=== PATIENT | female | born 1940 | race Caucasian/White ===

== ENCOUNTER 2018-09-06 15:27 | Emergency (ER) | payer MEDICARE, OTHER ==
[~2018-09-06] VITALS: Ht 162.6 cm; Wt 40.8 kg
[~2018-09-06 15:27] MED LIST: AMLO5TAB9 PO
--- NOTE | 2018-09-06 15:50 | NUR ---
R FLANK PAIN SINCE THURSDAY. STATES PAIN IS LIKE PRESSURE AND 11/13. HAD PREVIOUS NEPHRECTOMY OF LEFT KIDNEY. DENIES N/V. PROVIDED BLANKET FOR COMFORT. FAMILY AT BEDSIDE. READY FOR EVAL.
--- NOTE | 2018-09-06 15:50 | NUR ---
Ander tai in ED - 09/06/18 at 1635 by NUVIA R FLANK PAIN SINCE THURSDAY. STATES PAIN IS LIKE PRESSURE
--- NOTE | 2018-09-06 16:03 | NUR ---
URINE SENT TO STAT LAB
--- NOTE | 2018-09-06 16:11 | NUR ---
ELECTRICAL EQUIPMENT ASSEMBLER AT BEDSIDE
[2018-09-06 16:23] LABS: BASOPHILS % (AUTO) 0.5 % (0.0-2.0); EOSINOPHILS % (AUTO) 0.8 % (0.0-6.0); HEMATOCRIT 35 % (33-45); HEMOGLOBIN 12.1 g/dL (11.5-14.8); LYMPHOCYTES # (AUTO) 1.7 /CMM (0.8-4.8); MEAN CORPUSCULAR HGB CONC 35 g/dl (31.0-36.0); MEAN CORPUSCULAR VOLUME 94 fL (82-100); MONOCYTES # (AUTO) 0.8 /CMM (0.1-1.30); MONOCYTES % (AUTO) 9.2 % (2.0-12.0); NEUTROPHILS # (AUTO) 5.9 /CMM (1.8-8.9); NEUTROPHILS % (AUTO) 69.5 % (43.0-81.0); PLATELET COUNT (AUTO) 285 /CMM (150-450); RED BLOOD CELL COUNT(AUTO) 3.72 MIL/uL (4.0-5.2); WHITE BLOOD COUNT (AUTO) 8.5 K/uL (4.3-11.0)
[2018-09-06 16:24] LABS: APPEARANCE,URINE Turbid (CLEAR); BILIRUBIN,URINE Negative (NEGATIVE); BLOOD, URINE Large Ery/uL (NEGATIVE); COLOR,URINE Brown (YELLOW); KETONES,URINE Negative (NEGATIVE); LEUKOCYTE ESTERASE ,URINE Large (NEGATIVE); NITRITE, URINE Negative (NEGATIVE); PH,URINE 6.5 (5.0-8.0); PROTEIN,URINE >=300 mg/dl (NEGATIVE); UGLUCOSE Negative (NEGATIVE); UROBILINOGEN,URINE 0.2 EU/dL (0.2)
--- NOTE | 2018-09-06 16:24 | NUR ---
IV ACCESS OBTAINED, IVF INFUSING. PROVIDED EXTRA BLANKET FOR COMFORT. ULTRASOUND COMPLETED
[2018-09-06 16:30] LABS: CALCIUM, SERUM 8.6 mg/dL (8.5-10.1); CARBON DIOXIDE 26 mmol/L (21-32); CHLORIDE 95 mmol/L (98-107); CREATININE 2.2 mg/dL (0.6-1.3); GLUCOSE 115 mg/dL (74-106); POTASSIUM 4.9 mmol/L (3.5-5.1); SODIUM SERUM 129 mmol/L (136-145); UREA NITROGEN, BLOOD 38 mg/dL (7-18)
[2018-09-06] MEDS ORDERED: IV NS 0.9% 1,000 ML BAG IV ONE ×2 (16:30→18:00)
--- NOTE | 2018-09-06 16:30 | NUR ---
PT TAKEN TO RADIOLOGY VIA BRIANDA
--- NOTE | 2018-09-06 16:35 | NUR ---
Note abida in EDM - 09/06/18 at 1641 by NUVIA R FLANK PAIN SINCE THURSDAY. STATES PAIN IS LIKE PRESSURE AND 11/13. HAD PREVIOUS NEPHRECTOMY OF LEFT KIDNEY. DENIES N/V. PROVIDED BLANKET FOR COMFORT. FAMILY AT BEDSIDE. REAYD FOR EVAL.
[2018-09-06 16:36] LABS: ALANINE AMINOTRANSFERASE 17 U/L (12-78); ALBUMIN 3.1 g/dL (3.4-5.0); ALKALINE PHOSPHATASE 51 U/L (46-116); ASPARTATE AMINOTRANSFERASE 18 U/L (15-37); BILIRUBIN,DIRECT 0.1 mg/dL (0.0-0.2); BILIRUBIN,TOTAL 0.4 mg/dL (0.2-1.0); LIPASE 377 U/L (73-393); TOTAL PROTEIN, SERUM 7.3 g/dL (6.4-8.2)
[2018-09-06 16:42] LABS: BACTERIA,URINE 3+ /HPF (None Seen); RBC,URINE TOO NUMEROUS TO COUN /HPF (0-2); SQUAMOUS EPITHELIAL CELL,UR Few /HPF (None Seen); WBC,URINE TOO NUMEROUS TO COUN /HPF (0-3)
--- NOTE | 2018-09-06 16:42 | NUR ---
PT BACK FROM CT. SABINE WELL. DR GONZALEZ AT BEDSIDE
[2018-09-06] MEDS ORDERED: ATOR10TA PO (16:56)
--- NOTE | 2018-09-06 17:20 | NUR ---
CALLED DEHYDRATION PLANT OPERATOR UROLOGIST , TRANSFERRED CALL TO .
[2018-09-06] MEDS ORDERED: CEFTRIAXONE 1 G in IV D5W 50 ML IV ONE (17:30)
[2018-09-06] MEDS ORDERED: CEFTRIAXONE 1GM BAG (ER ONLY) 50 ML IV ONE (17:39)
--- NOTE | 2018-09-06 17:39 | NUR ---
CALLED DR.HOWARD WITT, , LEFT MESSAGE ON VOICEMAIL.
--- NOTE | 2018-09-06 18:13 | NUR ---
SECOND LITER NS INFUSING. PT SITTING COMFORTABLY IN BED. VSS. WILL CONT TO MONITOR.
--- NOTE | 2018-09-06 19:02 | NUR ---
SPOKE WITH PRINT OPERATOR CATRINA TO PROVIDE CLINICAL DATA. STATES SHE WILL HAVE HER MD CALL OUR ERMD. MOST LIKELY MEDR BED AT [facility]
--- NOTE | 2018-09-06 19:35 | NUR ---
ON PHONE WITH DR HUYNH TRANSFER
--- NOTE | 2018-09-06 20:17 | NUR ---
ON PHONE WITH FOR TRANSFER
--- NOTE | 2018-09-06 20:52 | NUR ---
Patient is resting comfortably in bed with eyes closed. Easily aroused. VSS
--- NOTE | 2018-09-06 20:57 | NUR ---
RECEIVED CALL FROM [facility] DIABETES EDUCATION COORDINATOR CATRINA. [facility], NUMBER FOR REPORT, , AWAITING CALL BACK FROM [email or web address] FOR ETA ON TRANSPORT.
[2018-09-06] MEDS ORDERED: HYDROCODONE/APAP 5/325MG 1 EACH TABLET ONE (21:11)
[2018-09-06 21:14] VITALS: BP 144/68
--- NOTE | 2018-09-06 21:32 | NUR ---
RECEIVED CALL FROM [facility] DELIVERY MOTORCYCLE DRIVER [facility] SHOULD BE HERE BY [phone].
--- NOTE | 2018-09-06 21:58 | NUR ---
REPORT GIVEN TO [facility] FOR [facility], [facility] BED [id number].
[2018-09-06] MEDS ORDERED: HYDROCODONE/APAP 5/325MG 1 EACH TABLET PO ONE (22:00)
--- NOTE | 2018-09-06 22:54 | NUR ---
[facility]
== END 2018-09-06 23:00 | disposition short-term general hospital (02) ==
LOC: ER 15:32
DX: N12 Tubulo-interstitial nephritis, not specified as acute or chronic (principal); N13.1 Hydronephrosis with ureteral stricture, not elsewhere classified; N17.9 Acute kidney failure, unspecified; I10 Essential (primary) hypertension; Z87.442 Personal history of urinary calculi; Z90.5 Acquired absence of kidney; Z90.89 Acquired absence of other organs; Z88.6 Allergy status to analgesic agent
CPT/HCPCS: 36415; 74176; 76705; 80048; 80076; 81001; 83605; 83690; 84484; 85025; 87040 ×2; 87081; 87086; 93005; 96374; 99285; J0696 ×2; J7030 ×2; J7060; 81000-TC

== ENCOUNTER 2019-03-25 12:52 | Inpatient (IN) | payer OTHER ==
[~2019-03-25] VITALS: Ht 162.6 cm; Wt 52.2 kg
[~2019-03-25 12:52] MED LIST changes: +ATOR10TA PO
--- NOTE | 2019-03-25 13:04 | NUR ---
WEAKNESS X 2 MONTHS, WORSENING IN PAST FEW DAYs' PT AAOX4, -SOB, NAD NOTED, VSS ,EVIN COLUNGA
[2019-03-25] MEDS ORDERED: IV NS 0.9% 1,000 ML BAG IV ONE (13:30)
[2019-03-25 13:33] LABS: BASOPHILS # (AUTO) 0.1 /CMM (0.0-0.2); BASOPHILS % (AUTO) 0.4 % (0.0-2.0); EOSINOPHILS % (AUTO) 0.8 % (0.0-6.0); HEMATOCRIT 28 % (33-45); HEMOGLOBIN 8.6 g/dL (11.5-14.8); LYMPHOCYTES # (AUTO) 1.7 /CMM (0.8-4.8); LYMPHOCYTES % (AUTO) 13.1 % (20.0-44.0); MEAN CORPUSCULAR HGB CONC 31 g/dl (31.0-36.0); MEAN CORPUSCULAR VOLUME 85 fL (82-100); MONOCYTES # (AUTO) 0.8 /CMM (0.1-1.30); MONOCYTES % (AUTO) 6.5 % (2.0-12.0); NEUTROPHILS % (AUTO) 79.2 % (43.0-81.0); PLATELET COUNT (AUTO) 647 /CMM (150-450); RED BLOOD CELL COUNT(AUTO) 3.25 MIL/uL (4.0-5.2); WHITE BLOOD COUNT (AUTO) 12.6 K/uL (4.3-11.0)
[2019-03-25 13:46] LABS: ALANINE AMINOTRANSFERASE 33 U/L (12-78); ALBUMIN 2.2 g/dL (3.4-5.0); ALKALINE PHOSPHATASE 77 U/L (46-116); ASPARTATE AMINOTRANSFERASE 19 U/L (15-37); BILIRUBIN,DIRECT 0.1 mg/dL (0.0-0.2); BILIRUBIN,TOTAL 0.2 mg/dL (0.2-1.0); CALCIUM, SERUM 9.4 mg/dL (8.5-10.1); CARBON DIOXIDE 20 mmol/L (21-32); CHLORIDE 103 mmol/L (98-107); CREATININE 2.8 mg/dL (0.6-1.3); GLUCOSE 104 mg/dL (74-106); POTASSIUM 4.9 mmol/L (3.5-5.1); SODIUM SERUM 137 mmol/L (136-145); TOTAL PROTEIN, SERUM 8.5 g/dL (6.4-8.2)
[2019-03-25 13:48] LABS: UREA NITROGEN, BLOOD 82 mg/dL (7-18)
[2019-03-25] MEDS ORDERED: CEFTRIAXONE 1GM BAG (ER ONLY) 50 ML IV ONE ×2 (14:00→14:04)
[2019-03-25] MEDS ORDERED: MIRT15TA7 PO (14:09)
[2019-03-25] MEDS ORDERED: MEGE400O5 PO (14:09)
[2019-03-25 15:04] LABS: APPEARANCE,URINE Turbid (CLEAR); BILIRUBIN,URINE Negative (NEGATIVE); BLOOD, URINE Moderate Ery/uL (NEGATIVE); COLOR,URINE Yellow (YELLOW); KETONES,URINE Negative (NEGATIVE); LEUKOCYTE ESTERASE ,URINE Large (NEGATIVE); NITRITE, URINE Negative (NEGATIVE); PROTEIN,URINE >=300 mg/dl (NEGATIVE); UGLUCOSE Negative (NEGATIVE); UROBILINOGEN,URINE 0.2 EU/dL (0.2)
[2019-03-25 15:07] LABS: BACTERIA,URINE Moderate /HPF (None Seen); SQUAMOUS EPITHELIAL CELL,UR Few /HPF (None Seen); WBC,URINE 80-100 /HPF (0-3)
--- NOTE | 2019-03-25 16:36 | NUR ---
spoke to romana miles [facility] regarding possible pt transfer, pt needs to have transfer info by 6:30pm today
--- NOTE | 2019-03-25 18:01 | NUR ---
PT GOING TO [facility] PER ADMITTING...
--- NOTE | 2019-03-25 19:18 | NUR ---
PT IS OK TO BE ADMITTED. PER ADMITTING
--- NOTE | 2019-03-25 19:37 | NUR ---
Ander tai in [facility] - 03/25/19 at 1939 by ADRIEN EPIC MORTGAGE COUNSELORVIRGINIE WETZEL
--- NOTE | 2019-03-25 19:39 | NUR ---
EPIC TRANSPORT ENGINEER PAGED
[2019-03-25 20:00] VITALS: BP 116/56
--- NOTE | 2019-03-25 20:04 | NUR ---
RECIEVED [id number]
--- NOTE | 2019-03-25 20:09 | NUR ---
CALLED DR. CARMONA FOR PANEL, LEFT VOICEMAIL
--- NOTE | 2019-03-25 20:15 | NUR ---
BED CHANGED TO
--- NOTE | 2019-03-25 20:25 | NUR ---
report given to elizabet albarado for iza pt will be transported 2nd floor
[2019-03-25 20:35] VITALS: BP 116/56
--- NOTE | 2019-03-25 20:40 | NUR ---
pt transported to 2nd floor
[2019-03-25] MEDS ORDERED: MAGNESIUM HYDROXIDE 30 ML UDC PO PRN (21:00)
[2019-03-25] MEDS ORDERED: Z GUARD REMEDY 2 OZ OINT TP PRN (21:00)
[2019-03-25] MEDS ORDERED: ZOLPIDEM TARTRATE 5 MG TABLET PO PRN (21:00)
[2019-03-25] MEDS ORDERED: HYDROCODONE/APAP 5/325MG 1 EACH TABLET PO PRN (21:00)
[2019-03-25] MEDS ORDERED: MAG HYDROX/AL HYDROX/SIMETH 30 ML UDC PO PRN (21:00)
[2019-03-25] MEDS ORDERED: ONDANSETRON HCL/PF 4 MG/2 ML VIAL IVP PRN (21:00)
[2019-03-25] MEDS ORDERED: ACETAMINOPHEN 325 MG TABLET PO PRN (21:00)
[2019-03-25] MEDS ORDERED: PIPERACILLIN /TAZOBACTAM 3.375 G in IV D5W 50 ML IV ONE (21:00)
--- NOTE | 2019-03-25 21:35 | NUR ---
MS MACHINE BUFFER NOTE RECEIVED PATIENT VIA [employer]. A/O X3. TOLERATING ROOM AIR. RESPIRATIONS ARE EVEN AND UNLABORED. NO S/S SOB NOTES. DENIES PAIN AT THIS TIME. IN NO APPARENT DISTRESS. IV ACCESS IN LFA #22 PATENT AND SALINE LOCKED. PATIENT DID NOT WANT TO CHANGE INTO GOWN BUT TOOK OFF PANTS TO ALLOW SKIN ASSESSMENT. SKIN ASSESSMENT COMPLETED AT THIS TIME. NO SKIN ISSUES, SKIN IS INTACT. PATIENT HAS A RIGHT NEPHROSTOMY TUBE DRAINING TO GRAVITY OUTPUT IS YELLOW. CORRECTIVE AND MANUAL ARTS THERAPIST TOOK VS AND COMPLETED BELONGINGS LIST. INITIAL PHYSICAL ASSESSMENT COMPLETED AT THIS TIME. BED IS LOW AND LOCKED, HOB FLAT, SIDE RAILS, CALL LIGHT WITHIN REACH WILL CONTINUE TO MONITOR. Addendum: 03/25/19 at 2350 by ROJELIO PIERRE RN HOME MEDICATIONS RECEIVED FROM PATIENT, INFORMED HER THAT THEY ARE GOING TO BE AT THE PHARMACY UNTIL SHE IS DISCHARGED. PROPER PAPERWORK IS FILLED OUT.
[2019-03-25] MEDS: IV NS 0.9% 1,000 ML IV PRN (22:15)
[2019-03-25] MEDS: ATORVASTATIN 10 MG TABLET PO SCH (22:15)
[2019-03-26] MEDS: PIPERACILLIN /TAZOBACTAM 3.375 G in IV D5W 100 ML IV SCH ×2 (05:51→17:35)
--- NOTE | 2019-03-26 06:28 | NUR ---
MS RN CLOSING NOTE PATIENT IN BED. A/O X3. REMAINS TOLERATING ROOM AIR. RESPIRATIONS ARE EVEN AND UNLABORED. NO SOB NOTES. NO C/O PAIN. NO DISTRESS NOTED. IV ACCESS MAINTAINED IN LFA #22 RUNNING ZOSYN@25ML/HR. RIGHT NEPHROSTOMY TUBE MAINTAINED AND REMAINS DRAINING TO GRAVITY OUTPUT IS YELLOW. BED REMAINS LOW AND LOCKED, HOB FLAT, SIDE RAILS, CALL LIGHT WITHIN REACH WILL ENDORSE TO NEXT SHIFT.
[2019-03-26] MEDS: IV NS 0.9% 1,000 ML IV PRN ×2 (06:54→17:35)
--- NOTE | 2019-03-26 07:18 | NUR ---
MS RN NOTES PATIENT IN BED ALERT ORIENTED X 3. NO ACUTE DISTRESS NOTED. BREATHING UNLABORED. RIGHT NEPHROSTOMY TUBE INTACT DRAINING WELL. SAFETY MEASURES IN PLACE. CALL LIGHT WITHIN REACH. WILL CONTINUE TO MONITOR ACCORDINGLY.
[2019-03-26 08:00] VITALS: BP 112/59
[2019-03-26 08:10] LABS: BASOPHILS % (AUTO) 0.4 % (0.0-2.0); EOSINOPHILS % (AUTO) 1.4 % (0.0-6.0); HEMATOCRIT 22 % (33-45); HEMOGLOBIN 7.1 g/dL (11.5-14.8); LYMPHOCYTES # (AUTO) 1.6 /CMM (0.8-4.8); LYMPHOCYTES % (AUTO) 17.5 % (20.0-44.0); MEAN CORPUSCULAR HGB CONC 32 g/dl (31.0-36.0); MEAN CORPUSCULAR VOLUME 84 fL (82-100); MONOCYTES # (AUTO) 0.6 /CMM (0.1-1.30); NEUTROPHILS # (AUTO) 6.7 /CMM (1.8-8.9); NEUTROPHILS % (AUTO) 73.7 % (43.0-81.0); PLATELET COUNT (AUTO) 517 /CMM (150-450); RED BLOOD CELL COUNT(AUTO) 2.64 MIL/uL (4.0-5.2); WHITE BLOOD COUNT (AUTO) 9.1 K/uL (4.3-11.0)
[2019-03-26 08:27] LABS: CHOLESTEROL 82 mg/dL (<200); HDL CHOLESTEROL 25 mg/dL (40-60); LDL 48 mg/dL (0-99); TRIGLYCERIDES 85 mg/dL (30-150)
[2019-03-26 08:33] LABS: CALCIUM, SERUM 8.3 mg/dL (8.5-10.1); CARBON DIOXIDE 16 mmol/L (21-32); CHLORIDE 111 mmol/L (98-107); CREATININE 2.2 mg/dL (0.6-1.3); GLUCOSE 93 mg/dL (74-106); PHOSPHORUS 4.8 mg/dL (2.5-4.9); POTASSIUM 4.3 mmol/L (3.5-5.1); SODIUM SERUM 145 mmol/L (136-145); UREA NITROGEN, BLOOD 67 mg/dL (7-18)
[2019-03-26] MEDS: MIRTAZAPINE 15 MG TABLET PO SCH (08:40)
[2019-03-26] MEDS: MEGESTROL ACETATE SUSP 400 MG/10 ML UDC PO SCH ×2 (08:40→17:36)
[2019-03-26] MEDS: AMLODIPINE BESYLATE 5 MG TABLET PO SCH (08:40)
--- NOTE | 2019-03-26 15:20 | NUR ---
MS RN NOTES PATIENT SEEN AND EVALUATED BY DR TRINITY CRAWFORD, AWARE OF PUS NOTED IN THE NEPHROSTOMY TUBE DRAIN.
[2019-03-26 16:00] VITALS: BP 102/50
[2019-03-26] MEDS: LACTOBACILLUS RHAMNOSUS GG 1 EACH CAP.SPRINK PO SCH (17:36)
--- NOTE | 2019-03-26 19:00 | NUR ---
MS RN NOTES PATIENT IN BED ALERT ORIENTED X 3. NO ACUTE DISTRESS NOTED. BREATHING UNLABORED. RIGHT NEPHROSTOMY TUBE INTACT DRAINING WELL WITH OUTPUT OF 100ML. DUE MEDICATIONS GIVEN. NEEDS ATTENDED AND ANTICIPATED. KEPT CLEAN DRY AND COMFORTABLE. SAFETY MEASURES IN PLACE. CALL LIGHT WITHIN REACH. WILL ENDORSE TO NIGHT NURSE FOR CONTINUITY OF CARE
[2019-03-26 20:00] VITALS: BP 101/45
--- NOTE | 2019-03-26 20:23 | NUR ---
MS/RN ON INITIAL ROUNDING AT 1930, PATIENT WAS IN BED AWAKE, ALERT, ORIENTED, COMFORTABLE, NO C/O PAIN, NO DISTRESS NOTED, CALL LIGHT IN REACH. WILL MONITOR.
[2019-03-26] MEDS: ATORVASTATIN 10 MG TABLET PO SCH (21:44)
--- NOTE | 2019-03-26 22:58 | NUR ---
MS/RN PATIENT C/O UNABLE TO SLEEP DUE TO LOUD SNORING OF THE ROOM MATE. PATIENT WAS MOVED TO ROOM 202. PATIENT WAS HAPPY.
[2019-03-27] MEDS: PIPERACILLIN /TAZOBACTAM 3.375 G in IV D5W 100 ML IV SCH (05:56)
--- NOTE | 2019-03-27 06:29 | NUR ---
MS/RN PATIENT IS AWAKE, COMFORTABLE, NO DISTRESS NOTED, HAD AN ON AND OFF SLEEP THE WHOLE SHIFT, ALL NEEDS ATTENDED AT THIS TIME, WILL CONTINUE TO MONITOR.
[2019-03-27 07:20] LABS: BASOPHILS % (AUTO) 0.4 % (0.0-2.0); EOSINOPHILS % (AUTO) 1.9 % (0.0-6.0); HEMATOCRIT 22 % (33-45); LYMPHOCYTES # (AUTO) 1.5 /CMM (0.8-4.8); MEAN CORPUSCULAR HGB CONC 32 g/dl (31.0-36.0); MEAN CORPUSCULAR VOLUME 86 fL (82-100); MONOCYTES # (AUTO) 0.5 /CMM (0.1-1.30); MONOCYTES % (AUTO) 7.1 % (2.0-12.0); NEUTROPHILS # (AUTO) 5.5 /CMM (1.8-8.9); NEUTROPHILS % (AUTO) 71.6 % (43.0-81.0); PLATELET COUNT (AUTO) 447 /CMM (150-450); RED BLOOD CELL COUNT(AUTO) 2.55 MIL/uL (4.0-5.2); WHITE BLOOD COUNT (AUTO) 7.7 K/uL (4.3-11.0)
[2019-03-27 07:28] LABS: HEMOGLOBIN 6.9 g/dL (11.5-14.8)
--- NOTE | 2019-03-27 07:30 | NUR ---
PATIENT RECEIVED RESTING COMFORTABLY IN BED. NO S/S OR C/O PAIN OR DISTRESS NOTED. SIDE RAILS UP X2, CALL LIGHT LEFT WITHIN REACH. WILL CONTINUE PLAN OF CARE.
[2019-03-27 07:50] LABS: CALCIUM, SERUM 8.1 mg/dL (8.5-10.1); CARBON DIOXIDE 16 mmol/L (21-32); CHLORIDE 114 mmol/L (98-107); CREATININE 1.9 mg/dL (0.6-1.3); GLUCOSE 99 mg/dL (74-106); MAGNESIUM 1.8 mg/dL (1.8-2.4); PHOSPHORUS 3.3 mg/dL (2.5-4.9); POTASSIUM 3.9 mmol/L (3.5-5.1); SODIUM SERUM 143 mmol/L (136-145); UREA NITROGEN, BLOOD 45 mg/dL (7-18)
[2019-03-27 07:57] LABS: BAND % (MANUAL) 3 % (0.0-5.0); LYMPHOCYTES % (MANUAL) 18 % (16-48); MONOCYTES % (MANUAL) 9 % (0-11.0); NEUTROPHILS % (MANUAL) 70 (42-76)
[2019-03-27 08:00] VITALS: BP 105/56
[2019-03-27] MEDS: AMLODIPINE BESYLATE 5 MG TABLET PO SCH (09:00)
[2019-03-27] MEDS: MIRTAZAPINE 15 MG TABLET PO SCH (09:24)
[2019-03-27] MEDS: LACTOBACILLUS RHAMNOSUS GG 1 EACH CAP.SPRINK PO SCH ×2 (09:24→17:43)
[2019-03-27] MEDS: MEGESTROL ACETATE SUSP 400 MG/10 ML UDC PO SCH ×2 (09:25→17:42)
[2019-03-27] MEDS: SODIUM BICARBONATE 650 MG TABLET PO SCH ×2 (11:30→17:43)
[2019-03-27 12:08] LABS: HEMOGLOBIN 7.1 g/dL (11.5-14.8)
[2019-03-27] MEDS: MEROPENEM 500 MG in IV NS 0.9% 50 ML IV SCH ×2 (14:00→22:05)
[2019-03-27 16:00] VITALS: BP 122/52
--- NOTE | 2019-03-27 18:47 | NUR ---
CHANGE OF SHIFT REPORT PT RESTING COMFORTABLY IN BED. NO S/S OR C/O PAIN OR DISTRESS NOTED. SIDE RAILS UP X2, CALL LIGHT LEFT WITHIN REACH. PT KEPT CLEAN DRY AND COMFORTABLE. NO SIGNIFICANT CHANGES SINCE PREVIOUS SHIFT. WILL GIVE REPORT TO ELLE CROSS.
--- NOTE | 2019-03-27 19:05 | NUR ---
RN MS OPENING NOTES RECEIVED PATIENT IN BED AWAKE ALERT AND ORIENTED X 3-4, RESPIRATIONS EVEN AND UNLABORED WITH EQUAL RISE AND FALL OF CHEST, DENIES ANY PAIN OR DISCOMFORT AT THIS TIME, RIGHT SIDE NEPHROSTOMY SITE INTACT, DRESSING IS CLEAN AND INTACT, DRAINING WELL NOTED 30 CC YELLOW URINE WITH SLIGHT WHITE SEDIMENTS NOTED. IV SITE TO LEFT FA #22 G INTACT AND PATENT, IVF RUNNING ORDERED, SAFETY PRECAUTIONS IN PLACE,LOW BED AND LOCKED, ORIENTED TO STAFF AND CALL LIGHT AND KEPT WITHIN REACH, REMAINS COMFORTABLE WILL CONTINUE TO MONITOR AND ATTEND TO NEEDS.
[2019-03-27 20:00] VITALS: BP 107/68
[2019-03-27 20:33] VITALS: BP 107/68
[2019-03-27] MEDS: ATORVASTATIN 10 MG TABLET PO SCH (22:05)
[2019-03-28] VITALS (8 sets, daily range): BP systolic 74–126; BP diastolic 48–58
[2019-03-28] MEDS: IV NS 0.9% 1,000 ML IV PRN ×2 (00:46→12:12)
[2019-03-28 06:23] LABS: CALCIUM, SERUM 7.6 mg/dL (8.5-10.1); CARBON DIOXIDE 18 mmol/L (21-32); CHLORIDE 115 mmol/L (98-107); CREATININE 1.4 mg/dL (0.6-1.3); GLUCOSE 88 mg/dL (74-106); MAGNESIUM 1.3 mg/dL (1.8-2.4); PHOSPHORUS 2.2 mg/dL (2.5-4.9); POTASSIUM 3.8 mmol/L (3.5-5.1); SODIUM SERUM 144 mmol/L (136-145); UREA NITROGEN, BLOOD 25 mg/dL (7-18)
--- NOTE | 2019-03-28 06:26 | NUR ---
RN MS CLOSING NOTES PATIENT IN BED AWAKE ALERT AND ORIENTED X 3-4, RESPIRATIONS EVEN AND UNLABORED WITH EQUAL RISE AND FALL OF CHEST, DENIES ANY PAIN OR DISCOMFORT AT THIS TIME, RIGHT SIDE NEPHROSTOMY SITE INTACT, DRESSING IS CLEAN AND INTACT, DRAINING WELL NOTED TOTAL OUTPUT 180 CC YELLOW URINE WITH SLIGHT WHITE SEDIMENTS NOTED PATIENT ALSO VOID BRP X 3. IV SITE TO LEFT FA #22 G INTACT AND PATENT, IVF RUNNING ORDERED, SAFETY PRECAUTIONS IN PLACE,LOW BED AND LOCKED, CALL LIGHT KEPT WITHIN REACH, REMAINS COMFORTABLE WILL CONTINUE TO MONITOR AND ATTEND TO NEEDS AND ENDORSE TO NEXT SHIFT, ALL DUE MEDICATIONS GIVEN NO ADVERSE REACTIONS, NO FURTHER CHANGES NOTED .
[2019-03-28 06:44] LABS: BASOPHILS % (AUTO) 0.2 % (0.0-2.0); EOSINOPHILS % (AUTO) 1.2 % (0.0-6.0); HEMATOCRIT 21 % (33-45); LYMPHOCYTES # (AUTO) 1.5 /CMM (0.8-4.8); LYMPHOCYTES % (AUTO) 18.6 % (20.0-44.0); MEAN CORPUSCULAR HGB CONC 32 g/dl (31.0-36.0); MEAN CORPUSCULAR VOLUME 85 fL (82-100); MONOCYTES # (AUTO) 0.6 /CMM (0.1-1.30); MONOCYTES % (AUTO) 7.2 % (2.0-12.0); NEUTROPHILS # (AUTO) 5.7 /CMM (1.8-8.9); NEUTROPHILS % (AUTO) 72.8 % (43.0-81.0); PLATELET COUNT (AUTO) 439 /CMM (150-450); RED BLOOD CELL COUNT(AUTO) 2.46 MIL/uL (4.0-5.2); WHITE BLOOD COUNT (AUTO) 7.8 K/uL (4.3-11.0)
[2019-03-28 06:51] LABS: HEMOGLOBIN 6.6 g/dL (11.5-14.8)
--- NOTE | 2019-03-28 06:55 | NUR ---
RN MS NOTES RECEIVED CALL FROM LAB CRITICAL RESULT HGB 6.6/HCT 21 MADE AWARE WITH NEW ORDER TO TRANSFUSE 2 UNITS OF PRBC.
--- NOTE | 2019-03-28 07:10 | NUR ---
rn opening notes Received patient in bed resting. not in any form of distress. no sob. denied pain or discomfort at this time. iv access intact and patent. kept patient safe and comfortable. bed in low/locked position. siderails upx2, call light in reach. will cont to monitr accordingly.
[2019-03-28 07:59] LABS: EOSINOPHILS % (MANUAL) 2 % (0-4); LYMPHOCYTES % (MANUAL) 18 % (16-48); MONOCYTES % (MANUAL) 6 % (0-11.0); NEUTROPHILS % (MANUAL) 74 (42-76)
[2019-03-28] MEDS: AMLODIPINE BESYLATE 5 MG TABLET PO SCH (08:55)
[2019-03-28] MEDS: MIRTAZAPINE 15 MG TABLET PO SCH (08:55)
[2019-03-28] MEDS: MEGESTROL ACETATE SUSP 400 MG/10 ML UDC PO SCH ×2 (08:56→18:11)
[2019-03-28] MEDS: LACTOBACILLUS RHAMNOSUS GG 1 EACH CAP.SPRINK PO SCH ×2 (08:56→18:11)
[2019-03-28] MEDS: SODIUM BICARBONATE 650 MG TABLET PO SCH ×2 (08:56→18:11)
--- NOTE | 2019-03-28 09:28 | NUR ---
WOUND CARE CONSULT: PT PRESENTS WITH BLANCHABLE REDNESS TO SACRUM, PRESENT ON ADMISSION. PT IS ALERT AND ABLE TO TURN/REPOSITION IN BED. CURRENT HECTOR SCORE IS 20. WILL SEE PRN. Addendum: 03/28/19 at 0930 by YOAV BENSON WNDNU Amended: Links added.
[2019-03-28] MEDS ORDERED: K PHOS NEUTRAL 250 MG TABLET PO ONE (11:00)
[2019-03-28] MEDS: Magnesium 1GM/D5W 100ML PREMIX 100 ML IV SCH ×4 (11:32→18:10)
[2019-03-28] MEDS: MEROPENEM 500 MG in IV NS 0.9% 50 ML IV SCH (11:32)
--- NOTE | 2019-03-28 13:00 | NUR ---
rn notes: emptied 300cc of urine in nephrosotomy bag
[2019-03-28 14:07] LABS: HIV SCRN 4G wRFX Non Reactive (Non Reactive)
--- NOTE | 2019-03-28 14:30 | NUR ---
rn notes midline insertion by monique Nina. site is on right upper arm gauge 18
--- NOTE | 2019-03-28 15:01 | NUR ---
blood transfusion 1 unit prbc started. VSS. will continue to monitor accordingly
[2019-03-28] MEDS ORDERED: IV NS 0.9% 1,000 ML IV PRN (15:50)
--- NOTE | 2019-03-28 15:54 | NUR ---
rn notes ongoing blood transfusion. BP runs low. bp= 70/41. notified raúl conroy DNP. orders to give 1L NS bolus one time. noted order and will carry out
--- NOTE | 2019-03-28 17:35 | NUR ---
1 unit PRBC transfusion ended. No adverse reactions noted. BP still low, BP= 82/51. Xiomy Marquez DNP is aware. new order to check CBC at 1999. will monitor accordingly
--- NOTE | 2019-03-28 19:05 | NUR ---
RN MS OPENING NOTES PATIENT IN BED AWAKE ALERT AND ORIENTED X 3-4, RESPIRATIONS EVEN AND UNLABORED WITH EQUAL RISE AND FALL OF CHEST, DENIES ANY PAIN OR DISCOMFORT AT THIS TIME, RIGHT SIDE NEPHROSTOMY SITE INTACT, DRESSING IS CLEAN AND INTACT, DRAINING WELL NOTED 150 CC YELLOW URINE OUTPUT. IV SITE TO LEFT FA #24 G, RIGHT AC #18 AND RIGHT UPPER ARM MIDLINE #18 INTACT AND PATENT, IVF RUNNING ORDERED, SAFETY PRECAUTIONS IN PLACE,LOW BED AND LOCKED, ORIENTED TO STAFF AND CALL LIGHT AND KEPT WITHIN REACH, REMAINS COMFORTABLE WILL CONTINUE TO MONITOR AND ATTEND TO NEEDS.
--- NOTE | 2019-03-28 19:22 | NUR ---
rn closing notes patient in stable condition. all needs attended and provided. all due meds given as ordered. kept patient safe and comfortable bed in low/locked position, siderails upx2, call light in reach. endorsed to AMERICA Oswald for iza.
[2019-03-28 19:58] LABS: BASOPHILS % (AUTO) 0.3 % (0.0-2.0); EOSINOPHILS % (AUTO) 1.2 % (0.0-6.0); HEMATOCRIT 26 % (33-45); HEMOGLOBIN 8.2 g/dL (11.5-14.8); LYMPHOCYTES % (AUTO) 20.5 % (20.0-44.0); MEAN CORPUSCULAR HGB CONC 32 g/dl (31.0-36.0); MEAN CORPUSCULAR VOLUME 79 fL (82-100); MONOCYTES # (AUTO) 0.7 /CMM (0.1-1.30); NEUTROPHILS # (AUTO) 6.9 /CMM (1.8-8.9); PLATELET COUNT (AUTO) 453 /CMM (150-450); WHITE BLOOD COUNT (AUTO) 9.7 K/uL (4.3-11.0)
[2019-03-28] MEDS: ATORVASTATIN 10 MG TABLET PO SCH (21:09)
[2019-03-28] MEDS: MEROPENEM 1 G in IV NS 0.9% 100 ML IV SCH (21:11)
--- NOTE | 2019-03-29 | NUR ---
rn ms notes patient states unable to sleep states " i usually dont do this but can i have something to help me sleep" shubhamien prn given as ordered, will continue to monitor for effectiveness. vs wnl.
[2019-03-29] MEDS: IV NS 0.9% 1,000 ML IV PRN (03:03)
[2019-03-29 06:14] LABS: BASOPHILS % (AUTO) 0.3 % (0.0-2.0); EOSINOPHILS % (AUTO) 1.1 % (0.0-6.0); HEMATOCRIT 25 % (33-45); LYMPHOCYTES # (AUTO) 1.6 /CMM (0.8-4.8); LYMPHOCYTES % (AUTO) 19.3 % (20.0-44.0); MEAN CORPUSCULAR HGB CONC 32 g/dl (31.0-36.0); MEAN CORPUSCULAR VOLUME 77 fL (82-100); MONOCYTES # (AUTO) 0.5 /CMM (0.1-1.30); MONOCYTES % (AUTO) 5.6 % (2.0-12.0); NEUTROPHILS # (AUTO) 6.2 /CMM (1.8-8.9); NEUTROPHILS % (AUTO) 73.7 % (43.0-81.0); PLATELET COUNT (AUTO) 450 /CMM (150-450); RED BLOOD CELL COUNT(AUTO) 3.23 MIL/uL (4.0-5.2); WHITE BLOOD COUNT (AUTO) 8.4 K/uL (4.3-11.0)
--- NOTE | 2019-03-29 06:41 | NUR ---
RN MS CLOSING NOTES PATIENT IN BED AWAKE ALERT AND ORIENTED X 3-4, RESPIRATIONS EVEN AND UNLABORED WITH EQUAL RISE AND FALL OF CHEST, DENIES ANY PAIN OR DISCOMFORT AT THIS TIME, RIGHT SIDE NEPHROSTOMY SITE INTACT TOTAL OUTPUT 650, DRESSING IS CLEAN AND INTACT, DRAINING WELL NOTED YELLOW URINE OUTPUT. IV SITE TO LEFT FA #24 G, RIGHT AC #18 AND RIGHT UPPER ARM MIDLINE #18 INTACT AND PATENT, IVF RUNNING ORDERED, SAFETY PRECAUTIONS IN PLACE,LOW BED AND LOCKED, CALL LIGHT KEPT WITHIN REACH, REMAINS COMFORTABLE WILL CONTINUE TO MONITOR AND ATTEND TO NEEDS AND ENDORSE TO NEXT SHIFT. AMBIEN WAS EFFECTIVE. PATIENT SLEPT WELL, VS REMAINED WNL. NO S/S OF HYPOTENSION. AMBULATED WELL.
[2019-03-29 06:57] LABS: CALCIUM, SERUM 7.3 mg/dL (8.5-10.1); CREATININE 1.1 mg/dL (0.6-1.3); MAGNESIUM 1.7 mg/dL (1.8-2.4); PHOSPHORUS 2.1 mg/dL (2.5-4.9); POTASSIUM 3.6 mmol/L (3.5-5.1)
--- NOTE | 2019-03-29 07:18 | NUR ---
RN OPENING NOTE PT WAS RECEIVED IN BED AT LOWEST AND LOCKED POSITION WITH SIDE RAILS UP X2, A/O X3 BREATHING EVEN AND UNLABORED ON RA, NO S/S OF ANY DISTRESS OR PAIN AT THIS TIME, IV IS PATENT AND INTACT, NOTED TO HAVE NEPHROSTOMY THAT IS DRAINING, NOTED TO HAVE BM THIS MORNING, SAFETY PRECAUTIONS IN PLACE, CALL LIGHT IN REACH, WILL MONITOR ACCORDINGLY
[2019-03-29 08:00] VITALS: BP 136/53
[2019-03-29] MEDS: LACTOBACILLUS RHAMNOSUS GG 1 EACH CAP.SPRINK PO SCH ×2 (08:21→16:03)
[2019-03-29] MEDS: SODIUM BICARBONATE 650 MG TABLET PO SCH ×2 (08:21→16:03)
[2019-03-29] MEDS: MEGESTROL ACETATE SUSP 400 MG/10 ML UDC PO SCH ×2 (08:21→16:03)
[2019-03-29] MEDS: MIRTAZAPINE 15 MG TABLET PO SCH (08:21)
[2019-03-29] MEDS: AMLODIPINE BESYLATE 5 MG TABLET PO SCH (08:21)
[2019-03-29] MEDS: MEROPENEM 1 G in IV NS 0.9% 100 ML IV SCH ×2 (08:22→16:51)
[2019-03-29] MEDS: Magnesium 1GM/D5W 100ML PREMIX 100 ML IV SCH ×2 (09:49→10:45)
[2019-03-29] MEDS ORDERED: K PHOS NEUTRAL 250 MG TABLET PO ONE (12:00)
[2019-03-29] MEDS: ENSURE ENLIVE 237 ML LIQUID (VANILLA) PO SCH ×2 (12:35→16:03)
[2019-03-29] MEDS ORDERED: MERO1VIA3 IV (15:25)
[2019-03-29] MEDS ORDERED: SODI650T PO (15:25)
--- NOTE | 2019-03-29 15:26 | NUR ---
RN NOTE PER PT WILL BE DISCHARGED LATER TODAY AROUND SIX PM. PER GIVE ANTIBIOTIC EARLY AND THEN D/C PT.
[2019-03-29 16:00] VITALS: BP 122/57
--- NOTE | 2019-03-29 18:35 | NUR ---
DISCHARGE NOTE PT WAS D/C AT THIS TIME IN MEDICALLY STABLE CONDITION BACK HOME WITH HOME HEALTH WIT FAMILY MEMBER ABBI CONNOR. ID WAS REMOVED. VIRGIL MIDLINE WAS LEFT IN PLACE DUE TO PLAN TO CONTINUE A COURSE OF IV ANTIBIOTICS. ALL D/C PAPERWORK, EXITCARE AND BELONGING LIST WERE SIGNED, DISCUSSED, AND HANDED TO THE PT. PHOTOS OF SKIN WERE TAKEN AND PLACED IN THE CHART, ALL NEEDS WERE ATTENDED TO DURING HER STAY. PT WAS TAKEN DOWN VIA WHEELCHAIR WHERE THEY LEFT IN THEIR PRIVATE CAR.
== END 2019-03-29 18:30 | disposition home health service (06) | DRG 871 ==
LOC: ER 12:59 → MEDSG2 20:19
PROVIDERS: ADMIT Hospitalist; ATTEND Nurse Practitioner Acute Care
DX: A41.9 Sepsis, unspecified organism (principal); N17.0 Acute kidney failure with tubular necrosis; E43 Unspecified severe protein-calorie malnutrition; E87.2 Acidosis; N10 Acute pyelonephritis; N13.6 Pyonephrosis; Z68.1 Body mass index [BMI] 19.9 or less, adult; Z16.12 Extended spectrum beta lactamase (ESBL) resistance; N11.9 Chronic tubulo-interstitial nephritis, unspecified; D63.8 Anemia in other chronic diseases classified elsewhere; E78.5 Hyperlipidemia, unspecified; F17.210 Nicotine dependence, cigarettes, uncomplicated; I10 Essential (primary) hypertension; Z90.5 Acquired absence of kidney; Z93.6 Other artificial openings of urinary tract status; B96.1 Klebsiella pneumoniae [K. pneumoniae] as the cause of diseases classified elsewhere
CPT/HCPCS: 36415; 71045-TC; 80048-TC; 80061-TC; 80076-TC; 81000-TC; 83605-TC; 83735-TC; 84100-TC; 84484-TC; 85025-TC; 85027-TC; 85730-TC; 86803; 86850-TC; 86921-TC; 87040-TC; 87081-TC; 87086-TC; 87186-TC; 97116-TC; 97530-TC; A4216; G0378; J0696; J2185; J2543; J3475; J7030; J7050; J7060; P9016-BL

== ENCOUNTER 2019-04-21 11:26 | Emergency (ER) | payer OTHER ==
[~2019-04-21] VITALS: Ht 165.1 cm; Wt 36.7 kg
[~2019-04-21 11:26] MED LIST changes: +MEGE400O5 PO; +MERO1VIA3 IV; +MIRT15TA7 PO; +SODI650T PO
--- NOTE | 2019-04-21 11:29 | NUR ---
left hip/thigh pain, can't walk, glf after abruptly getting out of bed yesterday, pt awake, alert, -sob, nad noted, vss, pending md espinoza
[2019-04-21] MEDS ORDERED: HYDROCODONE/APAP 5/325MG 1 EACH TABLET ONE (11:57)
[2019-04-21] MEDS ORDERED: HYDROCODONE/APAP 5/325MG 1 EACH TABLET PO ONE (12:00)
--- NOTE | 2019-04-21 13:04 | NUR ---
CALLED ORTHO RAILWAY SIGNALLING ENGINEER.
[2019-04-21 13:22] LABS: BASOPHILS # (AUTO) 0.1 /CMM (0.0-0.2); HEMATOCRIT 23 % (33-45); MONOCYTES # (AUTO) 0.7 /CMM (0.1-1.30)
[2019-04-21 13:26] LABS: BASOPHILS % (AUTO) 0.7 % (0.0-2.0); EOSINOPHILS % (AUTO) 1.8 % (0.0-6.0); HEMOGLOBIN 7.4 g/dL (11.5-14.8); LYMPHOCYTES # (AUTO) 1.9 /CMM (0.8-4.8); LYMPHOCYTES % (AUTO) 17.9 % (20.0-44.0); MEAN CORPUSCULAR HGB CONC 33 g/dl (31.0-36.0); MEAN CORPUSCULAR VOLUME 80 fL (82-100); MONOCYTES % (AUTO) 6.9 % (2.0-12.0); NEUTROPHILS # (AUTO) 7.6 /CMM (1.8-8.9); NEUTROPHILS % (AUTO) 72.7 % (43.0-81.0); PLATELET COUNT (AUTO) 481 /CMM (150-450); RED BLOOD CELL COUNT(AUTO) 2.85 MIL/uL (4.0-5.2); WHITE BLOOD COUNT (AUTO) 10.4 K/uL (4.3-11.0)
[2019-04-21 13:29] LABS: CALCIUM, SERUM 8.4 mg/dL (8.5-10.1); CARBON DIOXIDE 27 mmol/L (21-32); CHLORIDE 103 mmol/L (98-107); CREATININE 1.8 mg/dL (0.6-1.3); GLUCOSE 93 mg/dL (74-106); POTASSIUM 5.5 mmol/L (3.5-5.1); SODIUM SERUM 137 mmol/L (136-145); UREA NITROGEN, BLOOD 31 mg/dL (7-18)
[2019-04-21] MEDS ORDERED: HYDROMORPHONE INJ 0.5 MG/0.5 ML SYRINGE IV ONE (13:30)
--- NOTE | 2019-04-21 14:23 | NUR ---
CALLED NURSING SUP FOR BED.
--- NOTE | 2019-04-21 15:09 | NUR ---
CM FROM [facility].
--- NOTE | 2019-04-21 15:30 | NUR ---
VIVIAN FRITZ FROM [facility] CALLED. PT WILL BE GOING TO [facility]. DR RODRIGUEZ IS THE ACCEPTING. WILL CALL BACK FOR DOCTOR TO DOCTOR.
--- NOTE | 2019-04-21 16:05 | NUR ---
NURSING SUP GAVE 205-2.
--- NOTE | 2019-04-21 16:40 | NUR ---
DR. RODRIGUEZ CALLED FROM [facility].
--- NOTE | 2019-04-21 16:53 | NUR ---
VIVIAN JOINER CALLED TO GIVE CONTACT INFO. [phone].
--- NOTE | 2019-04-21 17:18 | NUR ---
PT GOING TO [address] AT [facility]. NUMBER FOR REPORT. [phone]. DANIAL.
--- NOTE | 2019-04-21 18:23 | NUR ---
CM FROM [facility] GAVE 2030 ETA WITH [facility].
--- NOTE | 2019-04-21 18:31 | NUR ---
VIVIAN JOINER FROM [facility] FOUND A [address] [facility].
--- NOTE | 2019-04-21 20:54 | NUR ---
REPORT GIVEN TO LAURITA CHARGE NURSE, PT WILL BE GOING TO ROOM 310 AT [facility]
--- NOTE | 2019-04-21 21:13 | NUR ---
F/U WITH [facility] REGARDING AMBULANCE
[2019-04-21 21:24] VITALS: BP 85/52
--- NOTE | 2019-04-21 21:25 | NUR ---
PRIVATE AMBULANCE TRANSPORT IN FACILITY, PT TRANSPORTED TO [facility], VSS, NAD NOTED, PT IN STABLE CONDITION
== END 2019-04-21 21:25 | disposition short-term general hospital (02) ==
LOC: ER 11:27
DX: S72.092A Other fracture of head and neck of left femur, initial encounter for closed fracture (principal); I10 Essential (primary) hypertension; Z90.89 Acquired absence of other organs; Z90.5 Acquired absence of kidney; Z88.8 Allergy status to other drugs, medicaments and biological substances; Z79.899 Other long term (current) drug therapy; W18.39XA Other fall on same level, initial encounter; Y93.89 Activity, other specified; Y92.89 Other specified places as the place of occurrence of the external cause; Y99.8 Other external cause status
CPT/HCPCS: 36415; 73502; 80048-TC; 85025-TC; 87081-TC

== ENCOUNTER 2019-06-24 13:30 | Emergency (ER) | payer OTHER ==
[~2019-06-24] VITALS: Ht 162.6 cm; Wt 40.8 kg
[~2019-06-24 13:30] MED LIST changes: -MERO1VIA3 IV; -MIRT15TA7 PO; -SODI650T PO
--- NOTE | 2019-06-24 13:34 | NUR ---
BLOODY DRAINAGE NOTED IN HER NEPHROSTOMY BAG SINCE SHE WAS D/C FROM [facility]. DENIES SOB, DIZZINESS, WEAKNESS. DENIES PAIN. NO OTHER MEDICAL COMPLAINTS AT THIS TIME. FAMILY AT BEDSID, ON MONITOR, AND MADE COMFORTABLE. SEEN BY ANITRA SALDIVAR. AWAITING ORDERS.
[2019-06-24] MEDS ORDERED: IV NS 0.9% 500 ML BAG IV ONE (14:00)
--- NOTE | 2019-06-24 14:13 | NUR ---
IV LINE ESTABLISHED, BLOOD DRAWN AND SENT TO STAT LAB. PT SABINE WELL.
[2019-06-24 14:14] LABS: BASOPHILS # (AUTO) 0.1 /CMM (0.0-0.2); BASOPHILS % (AUTO) 0.7 % (0.0-2.0); EOSINOPHILS % (AUTO) 3.1 % (0.0-6.0); HEMATOCRIT 28 % (33-45); HEMOGLOBIN 8.9 g/dL (11.5-14.8); LYMPHOCYTES # (AUTO) 1.5 /CMM (0.8-4.8); LYMPHOCYTES % (AUTO) 17.4 % (20.0-44.0); MEAN CORPUSCULAR HGB CONC 32 g/dl (31.0-36.0); MEAN CORPUSCULAR VOLUME 92 fL (82-100); MONOCYTES # (AUTO) 0.5 /CMM (0.1-1.30); MONOCYTES % (AUTO) 5.7 % (2.0-12.0); NEUTROPHILS # (AUTO) 6.5 /CMM (1.8-8.9); NEUTROPHILS % (AUTO) 73.1 % (43.0-81.0); PLATELET COUNT (AUTO) 351 /CMM (150-450); RED BLOOD CELL COUNT(AUTO) 3.03 MIL/uL (4.0-5.2); WHITE BLOOD COUNT (AUTO) 8.9 K/uL (4.3-11.0)
[2019-06-24 14:24] LABS: CALCIUM, SERUM 8.8 mg/dL (8.5-10.1); CARBON DIOXIDE 26 mmol/L (21-32); CHLORIDE 106 mmol/L (98-107); CREATININE 1.7 mg/dL (0.6-1.3); GLUCOSE 106 mg/dL (74-106); POTASSIUM 5.5 mmol/L (3.5-5.1); SODIUM SERUM 141 mmol/L (136-145); UREA NITROGEN, BLOOD 52 mg/dL (7-18)
[2019-06-24 14:30] LABS: ALANINE AMINOTRANSFERASE 17 U/L (12-78); ALBUMIN 2.6 g/dL (3.4-5.0); ALKALINE PHOSPHATASE 45 U/L (46-116); ASPARTATE AMINOTRANSFERASE 15 U/L (15-37); BILIRUBIN,DIRECT 0.1 mg/dL (0.0-0.2); BILIRUBIN,TOTAL 0.2 mg/dL (0.2-1.0); TOTAL PROTEIN, SERUM 6.9 g/dL (6.4-8.2)
--- NOTE | 2019-06-24 14:48 | NUR ---
XRAY AT BEDSIDE
[2019-06-24] MEDS ORDERED: IV NS 0.9% 1,000 ML BAG IV ONE (15:00)
--- NOTE | 2019-06-24 15:25 | NUR ---
URINE SENT TO STAT LAB
[2019-06-24 15:35] LABS: BILIRUBIN,URINE SMALL (NEGATIVE); BLOOD, URINE Large Ery/uL (NEGATIVE); COLOR,URINE Red (YELLOW); KETONES,URINE Negative (NEGATIVE); LEUKOCYTE ESTERASE ,URINE Large (NEGATIVE); NITRITE, URINE Negative (NEGATIVE); PH,URINE 8.5 (5.0-8.0); PROTEIN,URINE >=300 mg/dl (NEGATIVE); UGLUCOSE Negative (NEGATIVE)
[2019-06-24 15:38] LABS: APPEARANCE,URINE TURBID (CLEAR); BACTERIA,URINE Few /HPF (None Seen); RBC,URINE TOO NUMEROUS TO COUN /HPF (0-2); SQUAMOUS EPITHELIAL CELL,UR Few /HPF (None Seen); WBC,URINE 51-80 /HPF (0-3)
[2019-06-24] MEDS ORDERED: PIPERACILLIN /TAZOBACTAM 3.375 G in IV D5W 50 ML IV ONE (16:00)
[2019-06-24] MEDS ORDERED: PIPERACILLIN /TAZOBACTAM 3.375 G VIAL IV ONE (16:03)
--- NOTE | 2019-06-24 16:17 | NUR ---
CALLED DIETARY TO REQUEST FOOD TRAY
--- NOTE | 2019-06-24 17:22 | NUR ---
CALLED OFFICE OF DR TABOR, PAGED FARM FIELD MANAGER
--- NOTE | 2019-06-24 17:48 | NUR ---
Patient does not wish to proceed with medical care recommended by ANITRA SALDIVRA. Patient given information related to possible complications, up to and including , which could occur as a result of leaving the hospital at this time. Patient verbalizes understanding of risks involved due to leaving against medical advice. Patient has signed AMA form.
[2019-06-24 17:53] VITALS: BP 97/52
== END 2019-06-24 17:55 | disposition left against medical advice (07) ==
LOC: ER 13:34
DX: N99.520 Hemorrhage of incontinent external stoma of urinary tract (principal); N39.0 Urinary tract infection, site not specified; I70.0 Atherosclerosis of aorta; I12.9 Hypertensive chronic kidney disease with stage 1 through stage 4 chronic kidney disease, or unspecified chronic kidney disease; N18.9 Chronic kidney disease, unspecified; R53.1 Weakness; D64.9 Anemia, unspecified; E87.2 Acidosis; Z90.5 Acquired absence of kidney
CPT/HCPCS: 36415; 71045; 80048; 80076; 81001; 83605 ×2; 84145; 84484; 85025; 85730; 86850; 87040 ×2; 87086; 93005; 96361; 96365; 99285; J2543; J7040; J7060; 81000-TC; J7050